=== PATIENT | male | born 1960 | race Caucasian/White ===

== ENCOUNTER 2016-10-12 17:26 | Emergency (ER) | payer SELFPAY ==
[~2016-10-12] VITALS: Ht 182.9 cm; Wt 95.3 kg
--- NOTE | 2016-10-12 17:55 | ED EENT ---
History of Present Illness General Chief Complaint: Eye Problems Stated Complaint: LT EYE INJ Nursing Triage Note: PT AMBULATED TO ROOM. PT STATES HE WAS WORKING ON HIS DRYER AND A WIRE BROKE AND SMACKED HIM IN HIS LEFT EYE. PT STATES BLURRY VISION BUT NO LOSS OF VISION AT THIS TIME. Source: patient Exam Limitations: no limitations History of Present Illness Time seen by provider: 17:51 Initial Comments To ER with left eye injury. States that he was at work replacing a dryer vent for individual and this dryer vent had an exposed wire which came back and poked him in the left lateral eye. He reports that his vision is a little blurry but pain is minimal. She does not wear contacts. Timing/Duration: abrupt Severity: moderate Location: eye (L) Prearrival Treatment: no prearrival treatment Associated Symptoms: denies symptoms Allergies and Home Medications Allergies Coded Allergies: No Known Drug Allergies (Unverified , 10/12/16) Review of Systems Constitutional: see HPI Eyes: See HPI Ears: No Symptoms Reported Nose: no symptoms reported Mouth: no symptoms reported Throat: no symptoms reported Respiratory: no symptoms reported Cardiovascular: no symptoms reported Musculoskeletal: no symptoms reported Past Yzxwmbz-Ypwhds-Gmdkyy Hx Patient Social History Alcohol Use: Denies Use Recreational Drug Use: No Smoking Status: Never a Smoker 2nd Hand Smoke Exposure: No Recent Foreign Travel: No Contact w/Someone Who Travel: No Recent Infectious Disease Expo: No Recent Hopitalizations: No Seasonal Allergies Seasonal Allergies: No Cardiovascular Cardiac Disorders: High Cholesterol, Hypertension Physical Exam Vital Signs Vital Sign - Last 12Hours 10/12/16 17:33 Temp 97.2 Pulse 71 Resp 20 B/P (MAP) 202/120 Pulse Ox 99 O2 Delivery Room Air General Appearance: WD/WN, no apparent distress Eyes: right eye normal inspection, right eye vision changes, left eye other ( small left lateral subconjunctival hemorrhage without any evidence of tear dropping of the fluorescein stain to suggest globe puncture), bilateral eye EOMI , bilateral eye PERRL Ears: bilateral ear TM normal, bilateral ear auricle normal, bilateral ear canal normal Mouth/Throat: normal mouth inspection, pharynx normal Neck: non-tender, full range of motion Respiratory: no respiratory distress, no accessory muscle use Gastrointestinal: normal bowel sounds, non tender, soft Progress/Results/Core Measures Results/Orders Vital Signs/I&O Vital Sign - Last 12Hours 10/12/16 17:33 Temp 97.2 Pulse 71 Resp 20 B/P (MAP) 202/120 Pulse Ox 99 O2 Delivery Room Air Blood Pressure Mean: 147 Departure Communication Progress Notes Spoke with Dr. Alexandre. Recommends antibiotic eyedrops, the patient tomorrow at 10 a.m. in his clinic and the patient should call him on his personal cell phone for any fading of vision or increase in pain Impression Impression: Primary Impression: Subconjunctival hemorrhage of left eye Disposition: HOME, SELF-CARE Condition: Stable Departure-Patient Inst. Decision time for Depature: 17:53 Referrals: NABEEL ALEXANDRE OD,LOCAL PHYSICIAN (PCP) Primary Care Physician Patient Instructions: Subconjunctival Hemorrhage Add. Discharge Instructions: 1. Follow-up with Dr. Alexandre tomorrow morning at 10 a.m. in his clinic which is on [address] directly across [address] from [facility]. 2. Call him tonight on his personal cell phone if you develop any fading of vision or increase in pain. His cell phone number is [phone]. 3. Antibiotic drops as directed All discharge instructions reviewed with patient and/or family. Voiced understanding. LAYTON ROSS APRN Oct 12, 2016 17:55
[2016-10-12] MEDS ORDERED: TETRACAINE 0.5% OPHTH SOLN 4 ML BTL (SINGLE DOSE ONLY) OP ONE (18:00)
[2016-10-12] MEDS ORDERED: BSS 15 ML IR ONE (18:00)
[2016-10-12] MEDS ORDERED: FLUORESCEIN (FLUOR-I-STRIPS) 1 MG STRP OU ONE (18:00)
[2016-10-12] MEDS ORDERED: GENTAMICIN 0.3% OPHTH SOLN 5 ML OP SCH (18:15)
[2016-10-12] MEDS ORDERED: TETANUS,DIPTH,PERTUSS P/F (BOOSTRIX) 0.5 ML VIAL IM ONE (18:30)
[2016-10-12 18:47] VITALS: BP 163/80
[2016-10-12] MEDS ORDERED: TOBRA/DEXAMETH (TOBRADEX) OPHTH SUSP 2.5 ML BTL OU SCH (20:00)
== END 2016-10-12 18:47 | disposition home or self-care (01) ==
LOC: EDUNIT# 17:26 → ER 17:29
DX: H11.32 Conjunctival hemorrhage, left eye (principal); E78.00 Pure hypercholesterolemia, unspecified; I10 Essential (primary) hypertension; W22.09XA Striking against other stationary object, initial encounter
CPT/HCPCS: 90471; 90715; 99284

== ENCOUNTER 2021-06-09 15:19 | Emergency (ER) | payer SELFPAY ==
[~2021-06-09] VITALS: Ht 182.8 cm; Wt 92.9 kg
[2021-06-09 16:13] LABS: BASOPHILS # (AUTO) 0.1 10^3/uL (0.0-0.1); BASOPHILS % (AUTO) 1 % (0-10); EOSINOPHILS # (AUTO) 0.5 10^3/uL (0.0-0.3); EOSINOPHILS % (AUTO) 6 % (0-10); HEMATOCRIT 46 % (40-54); LYMPHOCYTES # (AUTO) 2.2 10^3/uL (1.0-4.0); LYMPHOCYTES % (AUTO) 23 % (12-44); MEAN CORPUSCULAR HEMOGLOBIN 27 pg (25-34); MEAN CORPUSCULAR HGB CONC 33 g/dL (32-36); MEAN CORPUSCULAR VOLUME 84 fL (80-99); MEAN PLATELET VOLUME 10.3 fL (9.0-12.2); MONOCYTES # (AUTO) 0.6 10^3/uL (0.0-1.0); MONOCYTES % (AUTO) 7 % (0-12); NEUTROPHILS # (AUTO) 6.1 10^3/uL (1.8-7.8); NEUTROPHILS % (AUTO) 63 % (42-75); PLATELET COUNT 261 10^3/uL (130-400); WHITE BLOOD COUNT 9.5 10^3/uL (4.3-11.0)
--- NOTE | 2021-06-09 16:13 | ED Chest Pain ---
General Chief Complaint: Chest Pain Stated Complaint: L HAND/ARM NUMB/FACIAL NUMBNESS X 2 WKS Nursing Triage Note: PT AMB TO RM 5 WITH COMPLAINT OF LEFT ARM NUMBNESS/TINGLING. ALSO COMPLAINING OF STABBING CP. STATES SYMPTOMS HAVE BEEN WORSENING OVER THE LAST 2 WEEKS. Source: patient Exam Limitations: no limitations History of Present Illness Date Seen by Provider: Jun 09, 2021 Time Seen by Provider: 16:00 Initial Comments Patient is a 61-year-old male who presents to the emergency department with a chief complaint of headache, left-sided head pressure and paresthesias, also left arm paresthesias, "feels numb" as well as sharp intermittent chest pain that is worsened with exertion. Patient states he had onset of very mild symptoms about 2 weeks ago and every day since the symptoms have intensified. Patient states when he gets up and walks he feels like he is going to pass out. He denies any shortness of breath or nausea. No diaphoresis. He does not take any medications on a daily basis. He is a non-smoker, nondrinker no drugs. He denies any recent traumas. No fevers or chills or productive cough. No problems with bowel or bladder. Has not seen a doctor since 2016. Patient tells me that he used to take antihypertensives and lipid medication in 2014 but cut out caffeine and lost weight and changed his diet and his blood pressure improved. Has not seen a doctor since. Triage blood pressure in the 215/120 range. Heart rate in the 80s. Oxygen saturations normal. All other review of systems reviewed and negative except as stated. Timing/Duration: other (2 weeks) Severity/Quality: moderate Location: central (left of center) Radiation: arms (left arm) ASA po EVALUATION SPECIALIST: No NTG SL EVALUATION SPECIALIST: No Associated Symptoms: syncope (near syncope) Allergies and Home Medications Allergies Coded Allergies: No Known Drug Allergies (Unverified , 10/12/16) Patient Home Medication List Home Medication List Reviewed: Yes Amlodipine Besylate (Amlodipine Besylate) 5 Mg Tablet, 5 MG PO DAILY Prescribed by: LINDY CALDERON on 06/09/21 9755 Review of Systems Review of Systems Constitutional: see HPI EENTM: No Symptoms Reported Respiratory: No Symptoms Reported Cardiovascular: Chest Pain Gastrointestinal: No Symptoms Reported Genitourinary: No Symptoms Reported, Other ((increased frequency)) Musculoskeletal: no symptoms reported Skin: no symptoms reported Psychiatric/Neurological: Headache (mild; head "pressure" and "numbness" left side) All Other Systems Reviewed Negative Unless Noted: Yes Past Fbmiqhz-Baxmtm-Uljocj Hx Patient Social History Tobacco Use?: No Use of E-Cig and/or Vaping dev: No Substance use?: No Alcohol Use?: No Pt feels they are or have been: No Immunizations Up To Date Influenza Vaccine Up-to-Date: No; Not Current Seasonal Allergies Seasonal Allergies: No Past Medical History Surgeries: No Respiratory: No Cardiac: Yes High Cholesterol, Hypertension Neurological: No Genitourinary: No Gastrointestinal: No Musculoskeletal: No Endocrine: No HEENT: No Cancer: No Psychosocial: No Integumentary: No Blood Disorders: No Physical Exam Vital Signs Vital Signs - First Documented 06/09/21 15:59 Temp 37.3 Pulse 71 Resp 16 B/P (MAP) 211/134 (159) Pulse Ox 97 O2 Delivery Room Air Capillary Refill : Less Than 3 Seconds Height, Weight, BMI Height: 6'0" Weight: 210lbs. oz. 95.694963jh; 27.00 BMI Method:Stated General Appearance: No Apparent Distress, WD/WN HEENT: PERRL/EOMI, Pharynx Normal, Moist Mucous Membranes Neck: Normal Inspection Respiratory: Lungs Clear, Normal Breath Sounds, No Accessory Muscle Use, No Respiratory Distress Cardiovascular: Regular Rate, Rhythm (70-80"s), Normal Peripheral Pulses Gastrointestinal: Normal Bowel Sounds, Non Tender, Soft Rectal: Deferred Neurologic/Psychiatric: Alert, Oriented x3, No Motor/Sensory Deficits, Normal Mood/Affect, nonprofit director II-XII Norm as Tested Skin: Normal Color, Warm/Dry Progress/Results/Core Measures Results/Orders Lab Results Laboratory Tests Test 06/09/21 16:00 Range/Units White Blood Count 9.5 4.3-11.0 10^3/uL Red Blood Count 5.48 4.30-5.52 10^6/uL Hemoglobin 15.0 13.3-17.7 g/dL Hematocrit 46 40-54 % Mean Corpuscular Volume 84 80-99 fL Mean Corpuscular Hemoglobin 27 25-34 pg Mean Corpuscular Hemoglobin Concent 33 32-36 g/dL Red Cell Distribution Width 13.9 10.0-14.5 % Platelet Count 261 130-400 10^3/uL Mean Platelet Volume 10.3 9.0-12.2 fL Immature Granulocyte % (Auto) 0 % Neutrophils (%) (Auto) 63 42-75 % Lymphocytes (%) (Auto) 23 12-44 % Monocytes (%) (Auto) 7 0-12 % Eosinophils (%) (Auto) 6 0-10 % Basophils (%) (Auto) 1 0-10 % Neutrophils # (Auto) 6.1 1.8-7.8 10^3/uL Lymphocytes # (Auto) 2.2 1.0-4.0 10^3/uL Monocytes # (Auto) 0.6 0.0-1.0 10^3/uL Eosinophils # (Auto) 0.5 H 0.0-0.3 10^3/uL Basophils # (Auto) 0.1 0.0-0.1 10^3/uL Immature Granulocyte # (Auto) 0.0 0.0-0.1 10^3/uL Prothrombin Time 13.0 12.2-14.7 SEC INR Comment 0.9 0.8-1.4 Activated Partial Thromboplast Time 30 24-35 SEC Sodium Level 143 135-145 MMOL/L Potassium Level 3.7 3.6-5.0 MMOL/L Chloride Level 107 98-107 MMOL/L Carbon Dioxide Level 24 21-32 MMOL/L Anion Gap 12 5-14 MMOL/L Blood Urea Nitrogen 21 H 7-18 MG/DL Creatinine 1.19 0.60-1.30 MG/DL Estimat Glomerular Filtration Rate 69 BUN/Creatinine Ratio 18 Glucose Level 96 70-105 MG/DL Calcium Level 9.3 8.5-10.1 MG/DL Corrected Calcium 9.1 8.5-10.1 MG/DL Magnesium Level 2.2 1.6-2.4 MG/DL Total Bilirubin 0.7 0.1-1.0 MG/DL Aspartate Amino Transf (AST/SGOT) 16 5-34 U/L Alanine Aminotransferase (ALT/SGPT) 23 0-55 U/L Alkaline Phosphatase 38 L 40-136 U/L Myoglobin 52.0 10.0-92.0 NG/ML Troponin I < 0.028 <0.028 NG/ML B-Type Natriuretic Peptide 32.3 <100.0 PG/ML Total Protein 7.0 6.4-8.2 GM/DL Albumin 4.2 3.2-4.5 GM/DL My Orders Orders - LINDY CALDERON MD Amlodipine Tablet (Norvasc Tablet) (06/09/21 17:30) Medications Given in ED Current Medications Medications Dose Ordered Sig/Callum Route Start Time Stop Time Status Last Admin Dose Admin Aspirin 324 mg ONCE ONCE PO 06/09/21 16:15 06/09/21 16:16 DC 06/09/21 16:20 324 MG Vital Signs/I&O 06/09/21 15:59 Temp 37.3 Pulse 71 Resp 16 B/P (MAP) 211/134 (159) Pulse Ox 97 O2 Delivery Room Air Blood Pressure Mean: 159 Progress Progress Note : Time: 17:04 Progress Note Reevaluated patient, he is feeling a little bit better after the 10 mg of labetalol. Systolic is down to 188, diastolic 110. Labs have been reviewed as well as EKG and imaging. Everything looks great, no abnormalities have been found. The patient's symptoms are improved. He is not willing to stay in the hospital. I did discuss outpatient antihypertensive management with Dr. Chan who is on-call for the hospitalist service. Her recommendation was amlodipine 5 mg daily. Monitor for swelling, reevaluate in 1 week as the dose may need to be increased. I discussed with the patient the benefits of admission (further eval of chest pain and stroke-concerning symptoms) versus discharge. He continues to desire discharge. I gave him strict return precautions. He verbalized understanding. All questions are sought and answered. Initial ECG Impression Date: Jun 09, 2021 Initial ECG Impression Time: 16:16 Initial ECG Rate: 64 Initial ECG Rhythm: Normal Sinus Initial ECG Intervals: Normal Initial ECG Intervals VA 158 QRS 101 QTc 409 Initial ECG Impression: Normal Comment no ectopy, no ST depression or elevation Diagnostic Imaging Diagonstic Imaging: CT Comments [facility] [place], [place] NAME: BINTA ABURTO [facility] REC#: [id number] PT STATUS: REG ER : 1960 PHYSICIAN: LAYTON ROSS BUSINESS DEVELOPMENT PROFESSIONAL ADMIT DATE: 06/09/21/ER Signed Date of Exam:06/09/21 CT HEAD WO EXAMINATION: CT head without contrast. TECHNIQUE: Multiple contiguous axial images were obtained through the brain without the use of intravenous contrast. All CT scans use one or more of the following dose optimizing techniques: automated exposure control, MA and/or KvP adjustment based on patient size and exam type or iterative reconstruction. HISTORY: left arm numbness. COMPARISON: None available. FINDINGS: The mena-white matter differentiation is normal. No mass effect or midline shift. The ventricles are normal in size and configuration. Basilar cisterns are patent. There are no intra- or extra-axial fluid collections. There is no intracranial hemorrhage. The orbits are normal. Paranasal sinuses are normal. Mastoid air cells are clear. No soft tissue abnormality is seen. No osseous lesions or fractures are seen. IMPRESSION: 1. No acute intracranial abnormality. Dictated by: Dictated on workstation # [id number] Dict: 06/09/21 1640 Trans: 06/09/21 1649 [id number] Interpreted by: BART GROVES MD Electronically signed by: BART GROVES MD 06/09/21 1649 Diagonstic Imaging: Xray Plain Films/CT/US/NM/MRI: chest Comments [facility] [place], [place] NAME: BINTA ABURTO [facility] REC#: [id number] PT STATUS: REG ER : 1960 PHYSICIAN: LAYTON ROSS APRN ADMIT DATE: 06/09/21/ER Signed Date of Exam:06/09/21 CHEST 1 VIEW, AP/PA ONLY Indication: Chest pain Portable chest 4:16 PM Heart size and pulmonary vascularity are normal. Lungs are clear. There are no effusions or pneumothoraces. IMPRESSION: No acute abnormalities in the chest Dictated by: Dictated on workstation # [id number] Dict: 06/09/21 1624 Trans: 06/09/21 1624 [id number] [id number] Interpreted by: JAYLAN NORMAN MD Electronically signed by: JAYLAN NORMAN MD 06/09/21 1624 Departure Impression Primary Impression: Hypertensive urgency Disposition: 01 HOME, SELF-CARE Condition: Improved Departure-Patient Inst. Decision time for Depature: 17:23 Referrals: NO,LOCAL PHYSICIAN (PCP) Primary Care Physician RUBEN CRUZ MD Patient Instructions: High Blood Pressure Emergencies Add. Discharge Instructions: Try and reduce your salt intake as excess salt can drive up the blood pressure. Watch your diet. Start taking Norvasc/amlodipine 5 mg once daily. Please keep a log of your blood pressures, take it once or twice daily to follow-up with Dr. Cruz. You will need to follow-up in 1 week after being on this medication. Please come back to the emergency department if you develop a recurrence of symptoms, worsening headache, worsening weakness, chest pain or other emergent concerning symptoms. Scripts Amlodipine Besylate (Amlodipine Besylate) 5 Mg Tablet 5 MG PO DAILY, #30 TAB Prov: LINDY CALDERON MD 06/09/21 Copy Copies To 1: RUBEN CRUZ MD, KATHRYN M MD Jun 09, 2021 16:13
[2021-06-09] MEDS ORDERED: ASPIRIN 81 MG CHEW (CHILDREN'S ASA) PO ONE (16:15)
[2021-06-09 16:16] LABS: ALBUMIN 4.2 GM/DL (3.2-4.5)
[2021-06-09 16:17] LABS: POTASSIUM 3.7 MMOL/L (3.6-5.0)
[2021-06-09 16:18] LABS: CALCIUM 9.3 MG/DL (8.5-10.1)
[2021-06-09 16:21] LABS: BILIRUBIN,TOTAL 0.7 MG/DL (0.1-1.0)
[2021-06-09 16:23] LABS: CREATININE SERUM 1.19 MG/DL (0.60-1.30)
[2021-06-09 16:26] LABS: MAGNESIUM 2.2 MG/DL (1.6-2.4)
--- NOTE | 2021-06-09 16:26 | Diagnostic Imaging Report ---
Indication: Chest pain Portable chest 4:16 PM Heart size and pulmonary vascularity are normal. Lungs are clear. There are no effusions or pneumothoraces. IMPRESSION: No acute abnormalities in the chest Dictated by: Dictated on workstation # [id number]
[2021-06-09 16:31] LABS: INR 0.9 (0.8-1.4)
--- NOTE | 2021-06-09 16:44 | Diagnostic Imaging Report ---
EXAMINATION: CT head without contrast. TECHNIQUE: Multiple contiguous axial images were obtained through the brain without the use of intravenous contrast. All CT scans use one or more of the following dose optimizing techniques: automated exposure control, MA and/or KvP adjustment based on patient size and exam type or iterative reconstruction. HISTORY: left arm numbness. COMPARISON: None available. FINDINGS: The mena-white matter differentiation is normal. No mass effect or midline shift. The ventricles are normal in size and configuration. Basilar cisterns are patent. There are no intra- or extra-axial fluid collections. There is no intracranial hemorrhage. The orbits are normal. Paranasal sinuses are normal. Mastoid air cells are clear. No soft tissue abnormality is seen. No osseous lesions or fractures are seen. IMPRESSION: 1. No acute intracranial abnormality. Dictated by: Dictated on workstation # [id number]
[2021-06-09] MEDS ORDERED: LABETALOL HCL 20 MG/4 ML VIAL IV ONE (16:45)
[2021-06-09] MEDS ORDERED: AMLO-250 PO (17:26)
[2021-06-09] MEDS ORDERED: amLODIPine 5 MG (NORVASC) TAB PO ONE (17:30)
[2021-06-09 17:36] VITALS: BP 186/107
== END 2021-06-09 17:36 | disposition home or self-care (01) ==
LOC: EDUNIT# 15:19 → ER 15:21
DX: I16.0 Hypertensive urgency (principal)
CPT/HCPCS: 36415; 70450; 71045; 80053; 83735; 83874; 83880; 84484; 85025; 85610; 85730; 93005; 93041

== ENCOUNTER 2022-08-19 10:50 | Emergency (ER) | payer SELFPAY ==
[~2022-08-19] VITALS: Ht 182 cm; Wt 90.7 kg
[~2022-08-19 10:50] MED LIST: AMLO-250 PO
[2022-08-19] MEDS ORDERED: LABETALOL HCL 20 MG/4 ML VIAL IV ONE (11:15)
[2022-08-19 11:20] LABS: BASOPHILS # (AUTO) 0.1 10^3/uL (0.0-0.1); BASOPHILS % (AUTO) 1 % (0-10); EOSINOPHILS # (AUTO) 0.5 10^3/uL (0.0-0.3); EOSINOPHILS % (AUTO) 7 % (0-10); HEMATOCRIT 45 % (40-54); HEMOGLOBIN 14.8 g/dL (13.3-17.7); LYMPHOCYTES # (AUTO) 1.5 10^3/uL (1.0-4.0); LYMPHOCYTES % (AUTO) 20 % (12-44); MEAN CORPUSCULAR HEMOGLOBIN 28 pg (25-34); MEAN CORPUSCULAR HGB CONC 33 g/dL (32-36); MEAN CORPUSCULAR VOLUME 84 fL (80-99); MEAN PLATELET VOLUME 10.3 fL (9.0-12.2); MONOCYTES # (AUTO) 0.5 10^3/uL (0.0-1.0); MONOCYTES % (AUTO) 7 % (0-12); NEUTROPHILS # (AUTO) 4.9 10^3/uL (1.8-7.8); NEUTROPHILS % (AUTO) 66 % (42-75); PLATELET COUNT 231 10^3/uL (130-400); WHITE BLOOD COUNT 7.5 10^3/uL (4.3-11.0)
--- NOTE | 2022-08-19 11:22 | ED Cardiac General ---
History of Present Illness General Chief Complaint: Cardiac/General Problems Stated Complaint: HIGH BLOOD PRESSURE | DIZZINESS | BLURRED VISION Nursing Triage Note: PT PRESENTS TO ED VIA POV FROM HOME WITH COMPLAINTS OF HTN, DIZZINESS, R EYE BLURRY, L EAR HEARING DECREASED, L ARM TINGLING INTERMITTENT FOR A COUPLE MONTHS BUT WORSE WITHIN THE LAST 1-2 HOURS. PT STATS HE RAN OUT OF HIS BP MEDICATION A COUPLE MONTHS AGO. Source: patient Exam Limitations: no limitations History of Present Illness Date Seen by Provider: Aug 19, 2022 Time Seen by Provider: 11:03 Initial Comments 62-year-old male presents to the ER for hypertension. He states that he believes his blood pressure is elevated due to mild blurriness in right eye, muffled hearing in left ear, dizziness, and pain and swelling in the left side o f his neck. He reports that he has been dealing with this on and off for several months, symptoms became worse in the last hour or 2. He reports intermittent trouble breathing, states it occurs approximately every hour or 2 and last for only a few seconds, reports dizziness with this and feels like he is going to pass out. He denies headache and chest pain. He was seen here for similar symptoms in June of this year. He was prescribed amlodipine at that time. States he was taking it, but ran out. He currently does not have a primary care provider to refill his prescriptions. Allergies and Home Medications Allergies Coded Allergies: No Known Drug Allergies (Unverified , 10/12/16) Patient Home Medication List Home Medication List Reviewed: Yes Amlodipine Besylate (Amlodipine Besylate) 5 Mg Tablet, 5 MG PO DAILY Prescribed by: LINDY CALDERON on 06/09/21 1726 Amlodipine Besylate (Amlodipine Besylate) 5 Mg Tablet, 5 MG PO DAILY Prescribed by: Maria Esther Fox on 08/19/22 1216 Review of Systems Review of Systems Constitutional: see HPI Past Kfqnryi-Vsofss-Stoesb Hx Patient Social History Tobacco Use?: No Substance use?: No Alcohol Use?: No Pt feels they are or have been: No Seasonal Allergies Seasonal Allergies: No Past Medical History Surgery/Hospitalization HX: PMH: HTN, Surgeries: No Respiratory: No Cardiac: Yes High Cholesterol, Hypertension Neurological: No Genitourinary: No Gastrointestinal: No Musculoskeletal: No Endocrine: No HEENT: No Cancer: No Psychosocial: No Integumentary: No Blood Disorders: No Physical Exam Vital Signs Vital Signs - First Documented 08/19/22 08/19/22 11:05 12:30 Temp 36.4 Pulse 65 Resp 18 B/P (MAP) 203/108 (139) Pulse Ox 98 O2 Delivery Room Air Capillary Refill : Less Than 3 Seconds Height, Weight, BMI Height: 6'0" Weight: 210lbs. oz. 95.939042df; 27.00 BMI Method:Stated General Appearance: No Apparent Distress, WD/WN Neck: Supple; No Carotid Bruit; Tender Lateral (Mild tenderness to left anterior neck) Respiratory: Lungs Clear, Normal Breath Sounds, No Accessory Muscle Use, No Respiratory Distress Cardiovascular: Regular Rate, Rhythm, Systolic Murmur (Systolic murmur heard at aortic area) Extremity: Normal Inspection, Normal Range of Motion Neurologic/Psychiatric: Alert, Normal Mood/Affect Skin: Normal Color, Warm/Dry Progress/Results/Core Measures Results/Orders Lab Results Laboratory Tests Test 08/19/22 11:11 Range/Units White Blood Count 7.5 4.3-11.0 10^3/uL Red Blood Count 5.30 4.30-5.52 10^6/uL Hemoglobin 14.8 13.3-17.7 g/dL Hematocrit 45 40-54 % Mean Corpuscular Volume 84 80-99 fL Mean Corpuscular Hemoglobin 28 25-34 pg Mean Corpuscular Hemoglobin Concent 33 32-36 g/dL Red Cell Distribution Width 14.0 10.0-14.5 % Platelet Count 231 130-400 10^3/uL Mean Platelet Volume 10.3 9.0-12.2 fL Immature Granulocyte % (Auto) 0 % Neutrophils (%) (Auto) 66 42-75 % Lymphocytes (%) (Auto) 20 12-44 % Monocytes (%) (Auto) 7 0-12 % Eosinophils (%) (Auto) 7 0-10 % Basophils (%) (Auto) 1 0-10 % Neutrophils # (Auto) 4.9 1.8-7.8 10^3/uL Lymphocytes # (Auto) 1.5 1.0-4.0 10^3/uL Monocytes # (Auto) 0.5 0.0-1.0 10^3/uL Eosinophils # (Auto) 0.5 H 0.0-0.3 10^3/uL Basophils # (Auto) 0.1 0.0-0.1 10^3/uL Immature Granulocyte # (Auto) 0.0 0.0-0.1 10^3/uL Prothrombin Time 12.4 12.2-14.7 SEC INR Comment 0.9 0.8-1.4 Activated Partial Thromboplast Time 30 24-35 SEC Sodium Level 143 135-145 MMOL/L Potassium Level 4.0 3.6-5.0 MMOL/L Chloride Level 109 H 98-107 MMOL/L Carbon Dioxide Level 24 21-32 MMOL/L Anion Gap 10 5-14 MMOL/L Blood Urea Nitrogen 21 H 7-18 MG/DL Creatinine 1.14 0.60-1.30 MG/DL Estimat Glomerular Filtration Rate 72 BUN/Creatinine Ratio 18 Glucose Level 114 H 70-105 MG/DL Calcium Level 9.5 8.5-10.1 MG/DL Corrected Calcium 9.3 8.5-10.1 MG/DL Magnesium Level 2.2 1.6-2.4 MG/DL Total Bilirubin 0.6 0.1-1.0 MG/DL Aspartate Amino Transf (AST/SGOT) 16 5-34 U/L Alanine Aminotransferase (ALT/SGPT) 25 0-55 U/L Alkaline Phosphatase 38 L 40-136 U/L Troponin I < 0.028 <0.028 NG/ML B-Type Natriuretic Peptide 24.5 <100.0 PG/ML Total Protein 6.9 6.4-8.2 GM/DL Albumin 4.2 3.2-4.5 GM/DL My Orders Orders - MARIA ESTHER FOX APRN Ekg Tracing (08/19/22 11:06) Cbc With Automated Diff (08/19/22 11:14) Magnesium (08/19/22 11:14) Chest 1 View, Ap/Pa Only (08/19/22 11:14) Comprehensive Metabolic Panel (08/19/22 11:14) Protime With Inr (08/19/22 11:14) Partial Thromboplastin Time (08/19/22 11:14) Monitor-Rhythm Ecg Trace Only (08/19/22 11:14) Ed Iv/Invasive Line Start (08/19/22 11:14) Bnp Dickens (08/19/22 11:14) Troponin I Dickens (08/19/22 11:14) Labetalol Injection (Normodyne Injection (08/19/22 11:15) Amlodipine Tablet (Norvasc Tablet) (08/19/22 12:15) Medications Given in ED Current Medications Medications Dose Ordered Sig/Callum Route Start Time Stop Time Status Last Admin Dose Admin Amlodipine Besylate 5 mg ONCE ONCE PO 08/19/22 12:15 08/19/22 12:16 DC 08/19/22 12:27 5 MG Vital Signs/I&O 08/19/22 08/19/22 11:05 12:30 Temp 36.4 Pulse 65 56 Resp 18 14 B/P (MAP) 203/108 (139) 194/106 Pulse Ox 98 94 O2 Delivery Room Air Blood Pressure Mean: 139 Progress Progress Note : Progress Note Patient seen and evaluated, resting comfortably in bed, no acute distress. Based on exam and symptoms, this is likely hypertensive urgency. Work-up initially included CBC, CMP, magnesium, troponin, coags, chest x-ray, EKG. Labetalol ordered. 1210 Labs and chest x-ray reviewed. CBC grossly normal. CMP shows slightly gali vated chloride 109. BUN slightly elevated 21. Creatinine 1.14. GFR slightly decreased at 72. Glucose 114. Troponin negative. BNP normal. Coags normal. Chest x-ray negative for acute cardiopulmonary process. Patient's blood pressure improved to 177 systolic without the labetalol. He reports that his symptoms have improved. We will give him a dose of amlodipine here and di scharged with prescription for amlodipine since this is what he was on before. Patient instructed to establish with a primary care provider and follow-up for refills or possible medication changes. Patient agreeable to discharge. Discharge instructions and return precautions provided. Initial ECG Impression Date: Aug 19, 2022 Initial ECG Impression Time: 11:19 Initial ECG Rate: 64 Initial ECG Rhythm: Normal Sinus Initial ECG Intervals: Normal Initial ECG Impression: Normal Initial ECG Comparisson: Unchanged Departure Impression Primary Impression: Hypertension Qualified Codes: I10 - Essential (primary) hypertension Additional Impression: Chronic kidney disease Qualified Codes: N18.2 - Chronic kidney disease, stage 2 (mild) Disposition: 01 HOME, SELF-CARE Condition: Stable Departure-Patient Inst. Decision time for Depature: 12:14 Referrals: [facility] Patient Instructions: High Blood Pressure ED Add. Discharge Instructions: Take your amlodipine 1 tablet daily. You need to follow-up with a primary care provider to reevaluate your hypertension and to refill or alter your medications. They may need to increase the amlodipine or change medications. Call [facility] to try to establish with a primary care provider. Other private practice primary care providers in the area include Dr. Pérez, Dr. Matthew, Dr. Parr, Dr. Alvarez. Return for dizziness, severe headache, blurry vision, chest pain, shortness of air, or any other new, concerning, or worsening symptoms. All discharge instructions reviewed with patient and/or family. Voiced understanding. Scripts Amlodipine Besylate (Amlodipine Besylate) 5 Mg Tablet 5 MG PO DAILY for 60 Days, #60 TAB 0 Refills Prov: MARIA ESTHER FOX APRN 08/19/22 MARIA ESTHER FOX APRN Aug 19, 2022 11:22
[2022-08-19 11:26] LABS: ALBUMIN 4.2 GM/DL (3.2-4.5)
[2022-08-19 11:27] LABS: CHLORIDE 109 MMOL/L (98-107); SODIUM 143 MMOL/L (135-145)
[2022-08-19 11:28] LABS: CALCIUM 9.5 MG/DL (8.5-10.1)
[2022-08-19 11:29] LABS: GLUCOSE 114 MG/DL (70-105); TOTAL PROTEIN 6.9 GM/DL (6.4-8.2)
[2022-08-19 11:30] LABS: CARBON DIOXIDE 24 MMOL/L (21-32); INR 0.9 (0.8-1.4); PROTHROMBIN TIME PATIENT 12.4 SEC (12.2-14.7)
[2022-08-19 11:31] LABS: BILIRUBIN,TOTAL 0.6 MG/DL (0.1-1.0)
[2022-08-19 11:32] LABS: ALKALINE PHOSPHATASE 38 U/L (40-136); CREATININE SERUM 1.14 MG/DL (0.60-1.30); GFR ESTIMATED 72
[2022-08-19 11:33] LABS: BUN/CREATININE RATIO 18
[2022-08-19 11:35] LABS: ALANINE AMINOTRANSFERASE 25 U/L (0-55); MAGNESIUM 2.2 MG/DL (1.6-2.4)
--- NOTE | 2022-08-19 11:47 | Diagnostic Imaging Report ---
INDICATION: Hypertension, dizziness, right eye blurry, left ear hearing decreased, left arm tingling intermittently for a couple months.. TECHNIQUE: Single view chest 11:22 AM. CORRELATION STUDY: 06/09/2021 FINDINGS: Given patient position, heart size, mediastinum and vasculature overall generally stable. The lungs are clear with no consolidating infiltrate. There is no significant effusion or pneumothorax. IMPRESSION: 1. Negative appearing single view chest. Dictated by: Dictated on workstation # [id number]
[2022-08-19] MEDS ORDERED: amLODIPine 5 MG (NORVASC) TAB PO ONE (12:15)
[2022-08-19] MEDS ORDERED: AMLO-250 PO (12:16)
[2022-08-19 12:30] VITALS: BP 194/106
== END 2022-08-19 12:30 | disposition home or self-care (01) ==
LOC: EDUNIT# 10:50 → ER 10:53
DX: I12.9 Hypertensive chronic kidney disease with stage 1 through stage 4 chronic kidney disease, or unspecified chronic kidney disease (principal); N18.9 Chronic kidney disease, unspecified; M54.2 Cervicalgia
CPT/HCPCS: 36415; 71045; 80053; 83735; 83880; 84484; 85025; 85610; 85730; 93005; 93041